=== PATIENT | female | born 1945 | race Caucasian/White ===

== ENCOUNTER 2018-08-26 09:11 | Emergency (ER) | payer MEDICARE, BC ==
[~2018-08-26] VITALS: Ht 154.9 cm; Wt 65.9 kg
[2018-08-26] MEDS ORDERED: TETanus/Pertussis (Acell)/Diphther VAC/PF (Tdap-Adult) 0.5ml syringe IM ONE (11:25)
[2018-08-26] MEDS ORDERED: LIDOcaine 1% w/epiNEPHrine 1:200,000 30ml vial IM ONE (11:25)
--- NOTE | 2018-08-26 12:12 | NUR ---
colleen cai in room with pt
[2018-08-26] MEDS ORDERED: CEPH500C5 PO (12:15)
[2018-08-26 12:17] VITALS: BP 159/68
== END 2018-08-26 12:31 | disposition home or self-care (01) ==
LOC: ER 09:12
DX: S81.812A Laceration without foreign body, left lower leg, initial encounter (principal); Z88.2 Allergy status to sulfonamides; W26.8XXA Contact with other sharp object(s), not elsewhere classified, initial encounter; Y93.89 Activity, other specified; Y92.89 Other specified places as the place of occurrence of the external cause; Y99.8 Other external cause status
CPT/HCPCS: 12004; 90471; 90715; 99284; J3490